=== PATIENT | female | born 1940 | race Caucasian/White ===

== ENCOUNTER → 2016-10-20 | Day surgery (SDC) | payer MEDICARE, BC ==
[~2016-10-20] VITALS: Ht 162.6 cm; Wt 38.3 kg
[~2016-10-20] MED LIST: AUGMENTIN250 MG PO; BYSTOLIC5 MG PO; FEOSOL325 MG PO; HUMIBID LA (MU600 MG PO; HYDRALAZINE HCL25 MG PO; IPRAT-ALBUT 0.5-3 ML INH; LEVAQUIN500 MG PO; LEVOTHROID (S100 MCG PO; MIRALAX17 GM PO; MUCINEX DM ER1 EAC1 PO; NEURONTIN100 MG PO; NORCO 5-325 TA1 EACH PO; NORVASC2.5 MG PO; OXYGEN M-15; PROTONIX40 MG PO; ROXICODONE 5MG (5 MG PO; SENNA8.6 MG PO; SPIRIVA RESPIMAT4 G1 INH; VOL-CARE RX TA1 EACH PO
--- NOTE | ~2016-10-20 | OR ---
PATIENT'S NAME: STEPHANE SALAZAR [facility] AGE: 76 Y [address] ROOM: [place] [address] LOCATION: [facility] [place] ADMIT DATE: 10/20/2016 OR/Procedure Report DISCHARGE DATE: FAMILY PHYSICIAN: Brittaney Velasco MD ATTENDING PHYSICIAN: OG CHESTER SURGEON: Og Chester MD FINANCIAL AID OFFICER: DATE OF PROCEDURE: 10/20/2016 PREOPERATIVE DIAGNOSIS: End-stage renal disease. POSTOPERATIVE DIAGNOSIS: End-stage renal disease. PROCEDURE: Right arm brachial axillary AV graft using an Acuseal graft. CHEMIST: PAM Baires. ANESTHESIA: General. ESTIMATED BLOOD LOSS: 10 mL. OPERATIVE FINDINGS: Extremely thin skin which tore easily and 2 good thrill and bruit in the fistula at the end of the case. DESCRIPTION OF PROCEDURE: The patient was brought to the operating room, placed supine on the operating table, placed under general anesthesia, prepped and draped in a sterile manner. Preoperative time-out was performed. The patient received preoperative antibiotics. We made a standard incision 2 cm proximally in the antecubital fossa, dissected down the fascia, incised the fascia in a longitudinal manner. Dissected out the brachial artery in a 360- degree fashion. We then made a vertical incision in the axilla. Dissected down the fascia, incised the fascia in a longitudinal manner. Dissected out the axillary vein. We then tunneled a 4-7 Acuseal graft from the axillary incision to the brachial incision. We then gave 5000 units of heparin. We clamped proximally and distally on the artery. We made a 4 mm arteriotomy and then did a standard 6-0 Prolene anastomosis from the graft to the artery. Repeated this in a similar fashion with a 7 mm anastomosis at the vein in the axilla. We removed the clamps. There was excellent flow which was confirmed using Doppler. The patient received a total of 5000 units of heparin which was reversed with protamine. Deep layers were closed with 2-0 and 3-0 Vicryl. Skin was closed with interrupted nylons. The patient also developed a small skin tear which was repaired with interrupted nylon when we were tunneling the graft, the patient's skin was very delicate and almost transparent in nature. The patient awoke in the operating room, transferred to recovery room and allowed to go home later that day. PATIENT'S NAME: STEPHANE SALAZAR [facility] AGE: 76 Y [address] ROOM: [place], [place] [address] LOC[place] [facility] [place] ADMIT DATE: 10/20/2016 OR/Procedure Report DISCHARGE DATE: FAMILY PHYSICIAN: Brittaney Velasco MD ATTENDING PHYSICIAN: OG CHESTER OG CHESTER MD FKM/modl /[id number] d: 10/21/16 0005 t: 10/24/16 1813, OPERATIVE SUMMARY
[2016-10-20 08:26] LABS: BASOPHIL # 0.1 K/uL (0.0-0.2); BASOPHIL % 0.6 %; EOSINOPHIL # 0.3 K/uL (0.0-0.5); EOSINOPHIL % 1.8 %; HEMATOCRIT 33.9 % (33.0-46.0); HEMOGLOBIN 11.4 g/dL (10.0-15.0); IMMATURE GRANULOCYTE # 0.1 K/uL (0.0-0.3); IMMATURE GRANULOCYTE % 0.4 %; MCH 31.9 pg (27.0-34.0); MCHC 33.6 gm/dL (32.0-36.5); MONOCYTE # 0.8 K/uL (0.0-1.0); MONOCYTE % 5.8 %; MPV 9.1 fl (9.4-12.4); NEUTROPHIL % 77.4 %; NRBC % 0 /100WBC (0-0.00); PLATELET COUNT 221 K/uL (150-450); RBC 3.57 M/uL (3.50-5.50); WBC 14.2 K/uL (4.0-11.0)
[2016-10-20 08:46] LABS: CALCIUM 8.4 mg/dL (8.5-10.5); CREATININE 3.8 mg/dL (0.5-1.1); TOTAL BILIRUBIN 0.6 mg/dL (0.0-1.5); TOTAL PROTEIN 6.7 g/dL (6.0-8.4)
[2016-10-20 08:48] LABS: ANION GAP 12.9 (10.0-19.0); POTASSIUM 3.9 mMol/L (3.7-5.1)
--- NOTE | 2016-10-20 12:56 | NUR ---
PATIENT SLEEPING. UNABLE TO REASSESS PAIN LEVEL, BUT SEEMS COMFORTABLE.
== END | disposition disaster alternative care site (69) ==
LOC: GPOC 10-13 11:00 → GSDC 07:32 → GPOC 11:00
PROVIDERS: Surgery Vascular Surgery
DX: I12.0 Hypertensive chronic kidney disease with stage 5 chronic kidney disease or end stage renal disease (principal); N18.6 End stage renal disease; Z99.2 Dependence on renal dialysis; G89.29 Other chronic pain; M54.9 Dorsalgia, unspecified; K21.9 Gastro-esophageal reflux disease without esophagitis; F32.9 Major depressive disorder, single episode, unspecified; E78.00 Pure hypercholesterolemia, unspecified; F17.210 Nicotine dependence, cigarettes, uncomplicated; D63.8 Anemia in other chronic diseases classified elsewhere; I25.10 Atherosclerotic heart disease of native coronary artery without angina pectoris; J44.9 Chronic obstructive pulmonary disease, unspecified; Z98.41 Cataract extraction status, right eye; Z98.42 Cataract extraction status, left eye; Z90.49 Acquired absence of other specified parts of digestive tract; Z98.890 Other specified postprocedural states; Z79.899 Other long term (current) drug therapy
CPT/HCPCS: C1768; J0690; J1100; J1644; J2001; J2405; J2720; J3010; J7030

== ENCOUNTER 2016-10-25 13:30 | Inpatient (IN) | payer MEDICARE, BC ==
[~2016-10-25] VITALS: Ht 162.6 cm; Wt 40.0 kg
--- NOTE | ~2016-10-25 | CON ---
PATIENT'S NAME: STEPHANE SALAZAR [facility] AGE: 76 Y [address] ROOM: [address] [place], [place] [address] LOCATION: GICU ADMIT DATE: 10/25/2016 Consultation DISCHARGE DATE: FAMILY PHYSICIAN: PHYSICIAN, UNKNOWN ATTENDING PHYSICIAN: CHAGO CORREA DATE OF CONSULTATION: 10/25/2016 REFERRING PHYSICIAN: Chago Correa MD REASON FOR CONSULTATION: ESRD, dialysis management. HISTORY OF PRESENT ILLNESS: A 76-year-old lady with history of hypertension; severe COPD with chronic hypoxic respiratory failure, on 2 L oxygen at all times; end-stage kidney disease, possibly secondary to hypertensive nephrosclerosis, currently on in- center hemodialysis as per Monday, Monday, and Monday schedule, admitted with possible sepsis, shortness of breath, cough, sputum production, and increased oxygen requirement. Nephrology consultation has been called for ESRD and dialysis management. As per the patient, she was doing well until a couple of days ago when she started to feel very weak, fatigued, tired; does not have any energy to get out of the bed or couch. She has some shortness of breath more than usual, using about 3.5 L of oxygen at home, having more cough. Also has some increased sputum production. Denied any fever or chills. No headache. No chest pain or palpitation. No complaint of abdominal pain, constipation, or diarrhea. No nausea or vomiting. Does not make any urine. The patient is currently on Monday, Monday, and Monday schedule at [facility]. Last dialysis was on Monday and the estimated dry weight 136 kg. Notably about the access, the patient is getting dialysis via the right tunneled dialysis catheter; had a left arm AV fistula placement long back and the AV fistula got damaged inadvertently in the ER. More recently on 10/20, the patient got an Acuseal graft placement on the right upper arm. As per the Vascular Surgery, it is having good thrill and bruit and is ready for the use. PAST MEDICAL HISTORY: 1. Hypertension. 2. COPD, on chronic home oxygen with 2 L. 3. End-stage renal disease, possibly secondary to hypertensive nephrosclerosis. Currently on in-center dialysis on Monday, Monday, and Monday schedule. PAST SURGICAL HISTORY: Repair of abdominal aortic aneurysm, multiple fistula formations, and gallbladder surgery. FAMILY HISTORY: Significant for stroke in the dad as well as heart attack in the brother. SOCIAL HISTORY: Lifelong smoker. Currently smokes about a pack a day. PATIENT'S NAME: STEPHANE SALAZAR [facility] AGE: 76 Y [address] ROOM: [place] [address] LOCATION: [facility] ADMIT DATE: 10/25/2016 Consultation DISCHARGE DATE: FAMILY PHYSICIAN: PHYSICIAN, UNKNOWN ATTENDING PHYSICIAN: CHAGO CORREA A REVIEW OF SYSTEMS: GENERAL: No fever, no chills or rigor, but complaining of feeling fatigue and tired. HEENT: No sore throat. No sinus congestion. CVS: No chest pain, but shortness of breath as mentioned in the HPI. No leg swelling. RESPIRATORY: Shortness of breath. Complaining of cough and increased sputum production. GENITOURINARY: No urination at this point. Currently on dialysis. GASTROINTESTINAL: No abdominal pain. No abdominal distention. No nausea or vomiting. NEUROLOGIC: No weakness. No seizures. SKIN: No rash. No itching. ALLERGIES: No seasonal allergy. No hayfever. ENDOCRINE: No heat intolerance. No cold intolerance. PSYCHIATRIC: No sadness. No crying spells. No history of panic attack. ALLERGIES: NO KNOWN DRUG ALLERGIES. MEDICATIONS: As per the chart. PHYSICAL EXAMINATION: VITAL SIGNS: Blood pressure 130s/60s, pulse 70s, respiratory rate 18 to 22, saturation 94% on 4 L, and temperature 98. GENERAL: Not in apparent distress. HEAD: Moist mucous membranes. Bilateral PERRLA, EOMI. NECK: No JVD, thyromegaly, or lymphadenopathy. CVS: S1 and S2 normal, regular rate and rhythm. No murmur, rub, or gallop. CHEST: Mild occasional expiratory wheeze, crackle in both the right and left lower lobes. ABDOMEN: Soft, nontender, nondistended. Bowel sounds present. EXTREMITIES: No cyanosis or clubbing. Trace to 1+ extremity edema bilaterally. MUSCULOSKELETAL: No limitation of range of motion. SKIN: No pallor, cyanosis, or icterus. WIRE WINDER: Alert and oriented x3. No gross findings. LABORATORY DATA: From outside facility: ABG: PH 7.41, pCO2 of 44, pO2 of 51, saturation 88% on 35% FiO2. Chest x-ray, right basilar opacity consistent with pneumonia. WBC count of 24. Creatinine 4. Lactate 1.1.PATIENT'S NAME: STEPHANE SALAZAR [facility] AGE: 76 Y [address] ROOM: [place] [address] LOCATION: [facility] ADMIT DATE: 10/25/2016 Consultation DISCHARGE DATE: FAMILY PHYSICIAN: PHYSICIAN, UNKNOWN ATTENDING PHYSICIAN: CHAGO CORREA ASSESSMENT: 1. Xqkjj-at-djtrorb hypoxic respiratory failure. 2. Health-care associated pneumonia. 3. Chronic obstructive pulmonary disease exacerbation. 4. End-stage renal disease, currently on Monday, Monday, and Monday in- center hemodialysis. RECOMMENDATIONS: The patient got dialyzed on Monday, plan to get dialyzed on Monday again. We will use the Acuseal graft on the right arm and see how is the flow. We will use 17-gauge needle, and we will get a 250 blood flow rate with that. If the graft is working fine, we may remove the tunneled dialysis catheter by IR tomorrow. The patient probably has a health-care associated with sepsis; however, the patient has a tunneled dialysis catheter for a long time. We will send blood culture, one peripherally, one from the tunneled dialysis catheter as well as send the catheter tip for culture to rule out any catheter line infection. The patient is currently on vancomycin, Zosyn, and Levaquin as per the recommendation of the primary team, and we will continue to monitor that. At this point, the patient is having some shortness of breath, and DuoNeb and Symbicort will be done as per the respiratory therapist. Please send sputum culture as well. At this point, the patient has 1+ pitting edema in bilateral lower extremities and does not make any urine. We would recommend to hold off oral or IV prednisone at this point because the patient does not have that much wheezing or hypercapnia. Thank you for allowing me to participate in this patient's care. We will closely monitor the patient's progress along with you. ABHISEKH BARRINGTON MARCOS MD /modl /[id number] d: 10/26/16 2357 t: 11/05/16 0931, CONSULTATION REPORT
--- NOTE | ~2016-10-25 | HP ---
PATIENT'S NAME: STEPHANE SALAZAR [facility] AGE: 76 Y [address] ROOM: [place] [address] LOCATION: GICU ADMIT DATE: 10/25/2016 History & Physical DISCHARGE DATE: FAMILY PHYSICIAN: PHYSICIAN, UNKNOWN ATTENDING PHYSICIAN: OLIVIA MICHAEL DATE OF SERVICE: CHIEF COMPLAINT: Feeling weak, short of breath, sputum production, and increased oxygen requirement. HISTORY OF PRESENT ILLNESS: A 76-year-old lady with a past medical history of COPD with 2 L of oxygen all the time, end-stage renal disease, as well as hypertension; presented to [facility] with weakness, fatigue, and tiredness after dialysis was done on Monday for the last 24 hours, and she was transferred here for further care. On my encounter, she again told me that she was feeling fine over the weekend, but after the dialysis on Monday, she started feeling fatigued, tired, and did not have any energy to get out of bed or couch. On further inquiry, she did say that she is more short of breath than usual and she has been having increased sputum production as well as more cough. She denied having any fever or chills. She denied any headache, any trouble with the eyes, any chest pain, any palpitations, any abdominal pain, any constipation, or diarrhea. She does not make any urine. She denied any PND or any leg swelling at this point. REVIEW OF SYSTEMS: All other systems reviewed and were negative except what is mentioned in the HPI. PAST MEDICAL HISTORY: Significant for end-stage renal disease, Qtcuuc-Pomkizvhx-Qqdarj dialysis; hypertension; COPD, on 2 L of oxygen. PAST SURGICAL HISTORY: Repair of abdominal aortic aneurysm, multiple fistula formations. ALLERGIES: NO KNOWN DRUG ALLERGIES. MEDICATIONS: Being reconciled right now. SOCIAL HISTORY: PATIENT'S NAME: STEPHANE SALAZAR [facility] AGE: 76 Y [address] ROOM: [address] [place] [address] LOCATION: GICU ADMIT DATE: 10/25/2016 History & Physical DISCHARGE DATE: FAMILY PHYSICIAN: PHYSICIAN, UNKNOWN ATTENDING PHYSICIAN: OLIVIA MICHAEL Lifelong smoker, currently smokes as well. FAMILY HISTORY: Significant for stroke in dad as well as heart attack in brother. PHYSICAL EXAMINATION: VITAL SIGNS: Blood pressure 137/62, pulse 73, oxygen saturation 94% on 4 L of oxygen, respiratory rate of 16, temperature 98.0. GENERAL: No acute distress. Alert and oriented x3. HEENT: Head; atraumatic, normocephalic. Eyes, nonicteric. No pallor. Oropharynx, moist mucous membranes. CARDIOVASCULAR: S1, S2. No murmurs, gallops, or rubs. LUNGS: Mild occasional expiratory wheezes. Crackles in the right lower lobe. ABDOMEN: Soft, nontender, nondistended. Bowel sounds present. EXTREMITIES: +1 extremity edema bilaterally. MUSCULOSKELETAL: Severe sarcopenia. No muscle tenderness or joint swelling noted. ENDOCRINE: No thyromegaly or cushingoid features noted. LYMPHATICS: No lymphangitis or lymphadenopathy noted. LABORATORY DATA: Lab work from outside facility showed an ABG with pH of 7.41, carbon dioxide of 44, PaO2 of 51, and saturating 88% on 35% FiO2. Chest x-ray showed right basilar opacity consistent with pneumonia. Other lab work was impressive for white count of 24. Creatinine of 4.0. Lactate was 1.1. ASSESSMENT: 1. Acute hypoxic respiratory failure. 2. Health care associated pneumonia. 3. Chronic obstructive pulmonary disease exacerbation. 4. End-stage renal disease, Kocvnu-Klzwhqulh-Fouctb hemodialysis. 5. Chronic hypoxic respiratory failure. PLAN: We are going to admit this lady. We will start her on broad-spectrum antibiotics for health care associated pneumonia. She had recently been admitted in [place] and received IV antibiotics in the high risk of resistant organisms. Sputum and blood cultures will be obtained. DuoNebs and Symbicort will be done per the respiratory therapy. We will obtain a Renal consultation for hemodialysis tomorrow. Heparin for DVT prophylaxis. I will hold off the oral or IV prednisone at this point as she does not have any hypercapnia or wheezing too much. The patient is full code. PATIENT'S NAME: STEPHANE [facility] AGE: 76 Y [address] ROOM: [place] [address] LOCATION: [facility] ADMIT DATE: 10/25/2016 History & Physical DISCHARGE DATE: FAMILY PHYSICIAN: PHYSICIAN, UNKNOWN ATTENDING PHYSICIAN: OLIVIA MICHAEL MD NAREN BRIGHT/basill /[id number] D: [id number] T: [id number] HISTORY & PHYSICAL
--- NOTE | ~2016-10-25 | DS ---
PATIENT'S NAME: STEPHANE SALAZAR [facility] AGE: 76 Y [address] ROOM: [place] [address] LOCATION: GICU ADMIT DATE: 10/25/2016 Discharge Summary DISCHARGE DATE: 10/29/2016 FAMILY PHYSICIAN: Brittaney Velasco MD ATTENDING PHYSICIAN: Chago Correa ADMITTING DIAGNOSIS: Acute on chronic hypoxic respiratory failure. DISCHARGE DIAGNOSIS: Acute on chronic hypoxic respiratory failure. SECONDARY DIAGNOSES: 1. Healthcare-associated pneumonia. 2. Sepsis. 3. Essential hypertension. 4. ESRD on dialysis. 5. Anemia of chronic disease. 6. Protein calorie malnutrition. 7. History of hypothyroidism. PROCEDURES: Dialysis and removal of right IJ tunneled catheter. CONSULTATION: Nephrology. HISTORY OF PRESENT ILLNESS: The patient is a 76-year-old lady with a past medical history of COPD with 2 L oxygen all the time, end-stage renal disease, as well as hypertension, presented to [facility] with weakness, fatigue, and tiredness after dialysis was done on Monday for the last 24 hours. She was transferred here for further care. HOSPITAL COURSE: The patient was admitted. There was a concern for tunneled catheter infection, tunneled catheter was removed. The tip has no growth to date. The patient was also found to have left lower lobe pneumonia and was started on vancomycin, Zosyn, and Levaquin. The patient's symptoms improved. The patient was also treated for COPD exacerbation. The patient's blood culture was no growth to date and sputum culture shows no growth. The patient's antibiotic was changed to Levaquin. The patient continued to show improvement. During her stay, the patient had dialysis on Monday, Monday, Monday, via her right forearm AV graft. The patient tolerated the dialysis. CONDITION: Stable. DISPOSITION: Home. DISCHARGE MEDICATIONS: See MAR. PATIENT'S NAME: STEPHANE SALAZAR [facility] AGE: 76 Y [address] ROOM: [place] [address] LOCATION: GICU ADMIT DATE: 10/25/2016 Discharge Summary DISCHARGE DATE: 10/29/2016 FAMILY PHYSICIAN: Brittaney Velasco MD ATTENDING PHYSICIAN: Chago Correa DISCHARGE INSTRUCTIONS: 1. To continue taking Levaquin p.o. 2. To go to the next emergency department or contact physician if the patient has fever, chills, worsening of cough, shortness of breath, chest pain, or dizziness. FOLLOWUP: Follow up with her primary care physician and Zone Manager at [facility]. PHYSICAL EXAMINATION: VITAL SIGNS: Temperature 98.4, blood pressure 144/64, pulse of 76, respiratory rate 16, and O2 saturation of 94 on 2 L of oxygen. GENERAL APPEARANCE: The patient is alert and awake, cachetic. HEAD: Normocephalic, atraumatic. EYES: Extraocular muscles intact. CHEST: Clear to auscultation bilaterally. HEART: Regular rate and rhythm. No murmurs, rubs, or gallops. ABDOMEN: Soft. CLINICAL REVIEW NURSE: The patient is alert and oriented. Motor and sensory are grossly intact. Greater than 30 minutes was spent on discharge planning. MD DENA MENSAH/mayra /[id number] d: 10/29/1638 t: 11/07/16 1059, DISCHARGE SUMMARY
[~2016-10-25 13:30] MED LIST changes: -FEOSOL325 MG PO; -HUMIBID LA (MU600 MG PO; -LEVAQUIN500 MG PO
[2016-10-25 18:35] LABS: ALBUMIN 2.8 gm/dL (3.5-5.0); ANION GAP 17.8 (10.0-19.0); CALCIUM 8.3 mg/dL (8.5-10.5); PHOSPHORUS 3.7 mg/dL (2.5-4.9); POTASSIUM 4.8 mMol/L (3.7-5.1)
[2016-10-26 05:43] LABS: CALCIUM 7.8 mg/dL (8.5-10.5)
[2016-10-26 05:44] LABS: ANION GAP 16.8 (10.0-19.0); CREATININE 5.4 mg/dL (0.5-1.1); POTASSIUM 3.8 mMol/L (3.7-5.1)
[2016-10-26 06:02] LABS: BASOPHIL % 0.3 %; EOSINOPHIL # 0.4 K/uL (0.0-0.5); EOSINOPHIL % 2.9 %; HEMOGLOBIN 8.9 g/dL (10.0-15.0); IMMATURE GRANULOCYTE # 0.1 K/uL (0.0-0.3); IMMATURE GRANULOCYTE % 0.5 %; LYMPHOCYTE # 1.3 K/uL (0.8-4.0); LYMPHOCYTE % 8.9 %; MCH 31.7 pg (27.0-34.0); MCV 95.4 fl (83.0-98.0); MONOCYTE # 1.1 K/uL (0.0-1.0); MONOCYTE % 7.2 %; MPV 9.2 fl (9.4-12.4); NEUTROPHIL # (ANC) 12.1 K/uL (1.8-7.8); NEUTROPHIL % 80.2 %; NRBC % 0 /100WBC (0-0.00); RBC 2.81 M/uL (3.50-5.50); RDW-CV 13.7 % (11.9-14.6); WBC 15.1 K/uL (4.0-11.0)
[2016-10-26 06:03] LABS: HEMATOCRIT 26.8 % (33.0-46.0); MCHC 33.2 gm/dL (32.0-36.5); PLATELET COUNT 157 K/uL (150-450)
[2016-10-28 14:30] LABS: BASOPHIL % 0.1 %; EOSINOPHIL % 0.1 %; HEMATOCRIT 29.2 % (33.0-46.0); HEMOGLOBIN 9.9 g/dL (10.0-15.0); IMMATURE GRANULOCYTE # 0.2 K/uL (0.0-0.3); IMMATURE GRANULOCYTE % 1.7 %; LYMPHOCYTE # 0.7 K/uL (0.8-4.0); LYMPHOCYTE % 7.2 %; MCH 31.5 pg (27.0-34.0); MCHC 33.9 gm/dL (32.0-36.5); MONOCYTE # 0.2 K/uL (0.0-1.0); MONOCYTE % 1.9 %; MPV 9.6 fl (9.4-12.4); NEUTROPHIL # (ANC) 8.6 K/uL (1.8-7.8); NRBC % 0 /100WBC (0-0.00); RBC 3.14 M/uL (3.50-5.50); RDW-CV 13.3 % (11.9-14.6); WBC 9.7 K/uL (4.0-11.0)
[2016-10-28 14:34] LABS: ALBUMIN 2.7 gm/dL (3.5-5.0); ANION GAP 17.5 (10.0-19.0); CALCIUM 8.6 mg/dL (8.5-10.5); POTASSIUM 4.5 mMol/L (3.7-5.1)
[2016-10-28 14:35] LABS: CREATININE 4.9 mg/dL (0.5-1.1)
[2016-10-28 14:36] LABS: PLATELET COUNT 191 K/uL (150-450)
[2016-10-29] MEDS ORDERED: FEOSOL325 MG PO (08:50)
[2016-10-29] MEDS ORDERED: HUMIBID LA (MU600 MG PO (08:51)
[2016-10-29] MEDS ORDERED: LEVAQUIN500 MG PO (08:57)
== END 2016-10-29 11:40 | disposition disaster alternative care site (69) | DRG 871 ==
LOC: GICU 16:13
PROVIDERS: Internal Medicine Nephrology; ADMIT Internal Medicine
PROC: 05PY33Z Removal of Infusion Device from Upper Vein, Percutaneous Approach (ICD-10-PCS; principal; 2016-10-25)
PROC: 5A1D60Z (ICD-10-PCS; 2016-10-26)
DX: A41.9 Sepsis, unspecified organism (principal); J96.21 Acute and chronic respiratory failure with hypoxia; E43 Unspecified severe protein-calorie malnutrition; N18.6 End stage renal disease; J15.6 Pneumonia due to other Gram-negative bacteria; I12.0 Hypertensive chronic kidney disease with stage 5 chronic kidney disease or end stage renal disease; Z99.81 Dependence on supplemental oxygen; D63.8 Anemia in other chronic diseases classified elsewhere; J44.1 Chronic obstructive pulmonary disease with (acute) exacerbation; Z68.1 Body mass index [BMI] 19.9 or less, adult; Z99.2 Dependence on renal dialysis; Z87.891 Personal history of nicotine dependence; Y95 Nosocomial condition; K59.00 Constipation, unspecified; E03.9 Hypothyroidism, unspecified
CPT/HCPCS: J1644; J1956; J2270; J2543; J2920; J3370; J7040; J7050; J7060; J7120; P9047; Q4081

== ENCOUNTER → 2016-12-05 | Outpatient (CLI) | payer MEDICARE, BC ==
[~2016-12-05] MED LIST changes: +FEOSOL325 MG PO; +HUMIBID LA (MU600 MG PO; +LEVAQUIN500 MG PO
[2016-12-05 12:20] LABS: BASOPHIL # 0.1 K/uL (0.0-0.2); BASOPHIL % 0.7 %; EOSINOPHIL # 0.2 K/uL (0.0-0.5); EOSINOPHIL % 1.6 %; HEMATOCRIT 34.5 % (33.0-46.0); HEMOGLOBIN 11.3 g/dL (10.0-15.0); IMMATURE GRANULOCYTE # 0.1 K/uL (0.0-0.3); IMMATURE GRANULOCYTE % 0.7 %; LYMPHOCYTE # 2.3 K/uL (0.8-4.0); LYMPHOCYTE % 17.9 %; MCH 30.6 pg (27.0-34.0); MCHC 32.8 gm/dL (32.0-36.5); MCV 93.5 fl (83.0-98.0); MONOCYTE # 0.6 K/uL (0.0-1.0); MONOCYTE % 4.5 %; MPV 9.2 fl (9.4-12.4); NEUTROPHIL # (ANC) 9.7 K/uL (1.8-7.8); NEUTROPHIL % 74.6 %; NRBC % 0 /100WBC (0-0.00); PLATELET COUNT 177 K/uL (150-450); RBC 3.69 M/uL (3.50-5.50); RDW-CV 14.2 % (11.9-14.6)
[2016-12-05 12:34] LABS: ALBUMIN 2.8 gm/dL (3.5-5.0); ANION GAP 16.9 (10.0-19.0); PHOSPHORUS 4.9 mg/dL (2.5-4.9); POTASSIUM 4.9 mMol/L (3.7-5.1)
== END ==
LOC: GOPD 08:30
PROVIDERS: Surgery Vascular Surgery
DX: I12.0 Hypertensive chronic kidney disease with stage 5 chronic kidney disease or end stage renal disease (principal); J44.9 Chronic obstructive pulmonary disease, unspecified; I27.2 Other secondary pulmonary hypertension; E78.5 Hyperlipidemia, unspecified; N18.6 End stage renal disease
CPT/HCPCS: C1750; J1644; J1756; P9047